=== PATIENT | male | born 1935 | race Caucasian/White ===

== ENCOUNTER 2021-03-11 14:39 | Outpatient (CLI) | payer MEDICARE, SELFPAY ==
--- NOTE | ~2021-03-11 | XR_ITS ---
MODIFIED ESOPHAGRAM HISTORY: Dysphagia. TECHNIQUE: Modified barium esophagram was performed by speech pathologist under radiologist fluorosco pic guidance. This was recorded on tape. The exam was reviewed on 03/11/2021 15:36 CDT. The DAP for this procedure was 1.8 Gycm2. One fluoroscopic image. FINDINGS: Lateral projection of the cervical spine demonstrates normal alignment. During oral stage there is reduced with tension and lingual movement. During pharyngeal stage there is reduced larynge al elevation, adduction, reduced tongue base retraction, reduced pharyngeal squeeze, vallecular resid ue, piriform sinus residue and pharyngeal residue. There is laryngeal penetration with aspiration.. IMPRESSION: 1: Abnormal swallowing function as described above with laryngeal penetration and aspiration. 2: Please refer to speech pathologist report for additional detail. Reviewed, dictated and finalized at location A. IMPRESSION: 1: Abnormal swallowing function as described above with laryngeal penetration a nd aspiration. 2: Please refer to speech pathologist report for additional detail.
--- NOTE | 2021-03-11 17:40 | STOPEVAL ---
MODIFIED BARIUM SWALLOW EVALUATION: Thank you for referring Ganesh Cruz to [facility].? Attending Provider: Asad Sawyer MD Outpatient Past Medical History Past Medical History Source of Past Medical History Recalled from Previous Visit, Unable to Confirm with Patient /Family Neurological History Hx Dementia Yes Hx Other Neurological Disorders Yes: tardive dyskinesia; extra pyramidal & movement disorder Cardiovascular History Hx Coronary Artery Disease Yes Hx Hypertension Yes Gastrointestinal History Hx Gastroesophageal Reflux Disease Yes Genitourinary History Hx Other Genitourinary Disorders Yes: hematuria & chronic kidney disease Endocrine History Hx Diabetes Yes Psychosocial History Hx Bipolar Disorder Yes Hx Depression Yes Other History Hx Cancer Yes: prostate Modified Barium Swallow Evaluation Recent Swallowing History Reports Dysphagia No: pt unaware Onset of Dysphagia unknown History of Dysphagia No Other Related History weight loss History of Pneumonia No Intake Method Prior to Swallow Unknown Evaluation Dentition Comments missing teeth Consistency Pureed Consistency Method of Presentation Spoon Oral Preparatory Symptoms Within Functional Limits Oral Phase Symptoms Reduced A-P Lingual Movement Pharyngeal Phase Symptoms Aspiration,Laryngeal Penetration,Reduced Laryngeal Elevation,Reduced Lingual Pressure,Residue in [place] Severity of Vallecular Residue Severe - > 50% Filled to Epiglottic Rim 8 Point Laryngeal Penetration-Aspiration Material Enters Airway Below Scale Vocal Cords, No Effort Made to Eject Aspiration Timing After the Swallow Aspiration Severity Mild-Moderate Pharyngeal Phase Comments chin tuck did not improve swallow Cervical/Esophageal Symptoms Within Functional Limits Moderately Thick 5 mL Method of Presentation Spoon Oral Preparatory Symptoms Abnormal Bolus Hold Oral Phase Symptoms Reduced A-P Lingual Movement Pharyngeal Phase Symptoms Aspiration,Laryngeal Penetration,Reduced Laryngeal Closure,Reduced Laryngeal Elevation,Reduced Lingual Pressure,Residue in [place] Severity of Vallecular Residue Moderate - 25-50 % Epiglottic Ligament Covered 8 Poin
== END 2021-03-11 14:40 | disposition home or self-care (01) ==
LOC: ANHIMG 14:40
PROVIDERS: PCP Family Medicine; Visit Provider Family Medicine
DX: R13.12 Dysphagia, oropharyngeal phase (principal)
CPT/HCPCS: 92611